=== PATIENT | female | born 1980 | race Caucasian/White ===

== ENCOUNTER 2022-03-14 11:25 | Emergency (ER) | payer OTHER ==
--- NOTE | 2022-03-14 11:50 | NUR ---
PATIENT LEFT WITHOUT BEING SEEN BY DR. HOFF. NO FURTHER CARE PROVIDED FOR PATIENT.
== END 2022-03-14 12:02 | disposition left against medical advice (07) ==
LOC: MED 11:25
DX: R10.9 Unspecified abdominal pain (principal); Z53.21 Procedure and treatment not carried out due to patient leaving prior to being seen by health care provider

== ENCOUNTER 2024-03-08 09:16 | Emergency (ER) | payer OTHER ==
[~2024-03-08] VITALS: Ht 157.5 cm; Wt 85.3 kg
[2024-03-08 09:20] VITALS: BP 111/71; PULSE 63; RESP 18; TEMP 97.4; O2SAT 100
[2024-03-08] MEDS: MECLIZINE 25 MG TAB PO ONE (10:26)
[2024-03-08 11:41] LABS: BASOPHILS % (AUTO) 0.2 % (0.0-2.0); EOSINOPHILS % (AUTO) 0.3 % (0.0-4.0); HEMATOCRIT 37.9 % (36-48); HEMOGLOBIN 13.1 g/dL (12.0-16.0); LYMPHOCYTES # (AUTO) 1.5 K/uL (2.5-16.5); LYMPHOCYTES % (AUTO) 26.9 % (20.5-51.1); MEAN CORPUSCULAR HEMOGLOBIN 30 pg (27-31); MEAN CORPUSCULAR HGB CONC 35 g/dL (33-37); MEAN CORPUSCULAR VOLUME 87.7 fL (80-94); MONOCYTES # (AUTO) 0.4 K/uL (0.8-1.0); MONOCYTES % (AUTO) 6.3 % (1.7-9.3); NEUTROPHILS # (AUTO) 3.8 K/uL (1.8-7.7); NEUTROPHILS % (AUTO) 66.3 % (42.2-75.2); PLATELET COUNT (AUTO) 237 K/uL (140-450); RED BLOOD CELL COUNT(AUTO) 4.32 MIL/uL (4.20-5.40); RED CELL DISTRIBUTION WIDTH 13.4 % (11.6-13.7); WHITE BLOOD COUNT (AUTO) 5.7 K/uL (4.8-10.8)
[2024-03-08 12:00] LABS: ANION GAP 12.4 (8-16); CALCIUM 8.5 mg/dL (8.5-10.1); CARBON DIOXIDE 26.8 mmol/L (21-32); CREATININE 0.6 mg/dL (0.6-1.3); POTASSIUM 4.2 mmol/L (3.5-5.1)
[2024-03-08 12:13] LABS: THYROID STIMULATING HORMONE 0.67 uIU/mL (0.34-3.74)
[2024-03-08] MEDS ORDERED: MECL-303 PO (12:27)
[2024-03-08 12:53] VITALS: BP 112/73; PULSE 60; RESP 16; TEMP 98.6; O2SAT 100
== END 2024-03-08 12:53 | disposition home or self-care (01) ==
LOC: MED 09:16
DX: R42 Dizziness and giddiness (principal); R11.0 Nausea; Z79.899 Other long term (current) drug therapy
CPT/HCPCS: 36415; 71045; 80048; 81002; 81025; 82948; 84443; 84484; 85025; 93005; 99285; J8597; Q0092